=== PATIENT | female | born 1970 | race American Indian/Alaskan Native ===

== ENCOUNTER 2017-07-27 13:42 | Emergency (ER) | payer MEDICAID ==
[2017-07-27 13:43] VITALS: BMI 34.9
[2017-07-27 14:05] VITALS: TEMP 98.9
[2017-07-27] MEDS ORDERED: Albuterol-Ipratrop 3 mg / 0.5 (3 ml) UD IH STA (14:20)
--- NOTE | 2017-07-27 14:23 | ED PDOC ---
Arrival/HPI - General Chief Complaint: Shortness Of Breath Time Seen by Provider: 07/27/17 14:15 Historian: Patient - History of Present Illness Narrative History of Present Illness (Text): 07/27/17 14:20 A 47 year old female, whose past medical history includes asthma, presents to the emergency department complaining of shortness of breath and productive cough over the past 2 days. Patient reports her symptoms feel similar to previous asthma exacerbation. Patient used nebulizer treatments at home, with mild relief. Patient denies any fever, chills, nausea, vomiting, abdominal pain , chest pain or any other complaints. PMD: Dr. Page Time/Duration: Other (2 days) Symptom Course: Improving Quality: Other Context: Home Past Medical History - Provider Review Nursing Documentation Reviewed: Yes - Infectious Disease Hx of Infectious Diseases: None - Tetanus Immunization Tetanus Immunization: Unknown - Reproductive Menopause: No - Cardiac Hx Cardiac Disorders: Yes Hx Hypertension: Yes - Pulmonary Hx Respiratory Disorders: No - Neurological Hx Neurological Disorder: No - HEENT Hx HEENT Disorder: No - Renal Hx Renal Disorder: No - Endocrine/Metabolic Hx Endocrine Disorders: No - Hematological/Oncological Hx Blood Disorders: No - Integumentary Hx Dermatological Disorder: No - Musculoskeletal/Rheumatological Hx Musculoskeletal Disorders: No - Gastrointestinal Hx Gastrointestinal Disorders: No - Genitourinary/Gynecological Hx Genitourinary Disorders: No - Psychiatric Hx Psychophysiologic Disorder: No Hx Substance Use: No - Past Surgical History Past Surgical History: No Previous - Anesthesia Hx Anesthesia: No Hx Anesthesia Reactions: No Hx Malignant Hyperthermia: No - Suicidal Assessment Feels Threatened In Home Enviroment: No Family/Social History - Physician Review Nursing Documentation Reviewed: Yes Family/Social History: No Known Family HX Smoking Status: Never Smoked Hx Alcohol Use: No Hx Substance Use: No Hx Substance Use Treatment: No Allergies/Home Meds Allergies/Adverse Reactions: Allergies Penicillins Allergy (Verified 07/27/17 14:04) ANAPHYLAXIS Home Medications: Home Meds Medication Instructions Recorded Confirmed Valsartan [Diovan] 80 mg PO DAILY 07/27/17 07/27/17 [email or web address] CD [Cardizem CD] 240 mg PO DAILY 07/27/17 07/27/17 Review of Systems - Physician Review All systems were reviewed & negative as marked: Yes - Review of Systems Constitutional: absent: Fevers, Night Sweats Respiratory: SOB, Cough, Sputum Cardiovascular: absent: Chest Pain Gastrointestinal: absent: Abdominal Pain, Nausea, Vomiting Physical Exam Vital Signs Reviewed: Yes Vital Signs Temp Pulse Resp BP Pulse Ox 07/27/17 15:05 66 20 148/62 97 07/27/17 14:20 16 98 07/27/17 14:01 98.9 F 76 16 167/97 H 99 Temperature: Afebrile Blood Pressure: Hypertensive Pulse: Regular Respiratory Rate: Normal Appearance: Positive for: Well-Appearing, Non-Toxic, Comfortable Pain Distress: None Mental Status: Positive for: Alert and Oriented X 3 - Systems Exam Head: Present: Atraumatic, Normocephalic Pupils: Present: PERRL Extroacular Muscles: Present: EOMI Conjunctiva: Present: Normal Mouth: Present: Moist Mucous Membranes Neck: Present: Normal Range of Motion Respiratory/Chest: Present: Clear to Auscultation, Good Air Exchange, Other ( Actively coughing throughout evaluation). No: Respiratory Distress, Accessory Muscle Use, Wheezes Cardiovascular: Present: Regular Rate and Rhythm, Normal S1, S2. No: Murmurs Abdomen: Present: Normal Bowel Sounds. No: Tenderness, Distention, Peritoneal Signs Back: Present: Normal Inspection Upper Extremity: Present: Normal Inspection. No: Cyanosis, Edema Lower Extremity: Present: Normal Inspection. No: Edema Neurological: Present: GCS=15, CN II-XII Intact, Speech Normal Skin: Present: Warm, Dry, Normal Color. No: Rashes Psychiatric: Present: Alert, Oriented x 3, Normal Insight, Normal Concentration Medical Decision Making ED Course and Treatment: 07/27/17 14:20 Impression: A 47 year old female with shortness of breath and cough. Differential Diagnosis included but are not limited to: Asthma exacerbation Plan: -- Chest xray -- Duoneb and prednisone -- Reassess and disposition Progress Notes: 07/27/17 15:05 Patient feels much better. CXR was negative for PNA. She will be given Albuterol and Prednisone. She was advised to return to the ED if symptoms worsen or any other concern. - RAD Interpretation Radiology Orders: 07/27/17 14:20 CXR [CHEST TWO VIEWS (PA/LAT)] [RAD] Stat - Medication Orders Current Medication Orders: Discontinued Medications Albuterol/Ipratropium (Duoneb 3 Mg/0.5 Mg (3 Ml) Ud) 3 ml IH STAT STA Stop: 07/27/17 14:21 Last Admin: 07/27/17 14:52 Dose: 3 ml Prednisone (Prednisone Tab) 60 mg PO STAT STA Stop: 07/27/17 14:20 Last Admin: 07/27/17 14:51 Dose: 60 mg - Scribe Statement The provider has reviewed the documentation as recorded by the Ezequielibangie Lopez Provider Scribe Attestation: All medical record entries made by the Scribe were at my direction and personally dictated by me. I have reviewed the chart and agree that the record accurately reflects my personal performance of the history, physical exam, medical decision making, and the department course for this patient. I have also personally directed, reviewed, and agree with the discharge instructions and disposition. Disposition/Present on Arrival - Present on Arrival Any Indicators Present on Arrival: No History of DVT/PE: No History of Uncontrolled Diabetes: No Urinary Catheter: No History of Decub. Ulcer: No History Surgical Site Infection Following: None - Disposition Have Diagnosis and Disposition been Completed?: Yes Diagnosis: Asthma Disposition: HOME/ ROUTINE Disposition Time: 15:05 Patient Plan: Discharge Condition: IMPROVED Discharge Instructions (ExitCare): Asthma (ED) Additional Instructions: Ms Rothman, thank you for letting us take care of you today. Your provider was Dr. Kinsey. You were treated for Asthma Exacerbation. The emergency medical care you received today was directed at your acute symptoms. If you were prescribed any medication, please fill it and take as directed. It may take several days for your symptoms to resolve. Return to the Emergency Department if your symptoms worsen, do not improve, or if you have any other problems. Please contact your doctor or call one of the physicians/clinics you have been referred to that are listed on the Patient Visit Information form that is included in your discharge packet. Bring any paperwork you were given at discharge with you along with any medications you are taking to your follow up visit. Our treatment cannot replace ongoing medical care by a primary care provider (PCP) outside of the emergency department. Thank you for allowing the [facility] team to be part of your care today. If you had an X-Ray or CT scan: A Radiologist will review the ED reading if any change in treatment is needed we will contact you. If you had a blood, urine, or wound culture: It will take several days for the results, if any change in treatment is needed we will contact you. If you had an STI test: It will take 48 hours for the results. Please call after 1 week if you have not heard back. Prescriptions: Albuterol HFA [Ventolin HFA 90 mcg/actuation (8 g)] 2 puff IH Q4 #1 puff predniSONE [predniSONE Tab] 40 mg PO DAILY #8 tab Referrals: [facility] Luis Peter, [Non-Staff] - Follow up with primary Forms: [facility] (Iranian), WORK NOTE
--- NOTE | 2017-07-27 14:59 | RAD ---
HISTORY: cough r/o pna COMPARISON: No prior. TECHNIQUE: Chest PA and lateral FINDINGS: LUNGS: No active pulmonary disease. PLEURA: No significant pleural effusion identified. No pneumothorax apparent. CARDIOVASCULAR: Normal. OSSEOUS STRUCTURES: No significant abnormalities. VISUALIZED UPPER ABDOMEN: Normal. OTHER FINDINGS: None. IMPRESSION: No active disease.
[2017-07-27 15:13] VITALS: BP 148/62; PULSE 66; RESP 20; O2SAT 97
== END 2017-07-27 15:05 | disposition home or self-care (01) ==
LOC: ED 13:42
DX: J45.909 Unspecified asthma, uncomplicated (principal); I10 Essential (primary) hypertension

== ENCOUNTER 2017-09-27 13:17 | Emergency (ER) | payer MEDICAID ==
[2017-09-27 13:39] VITALS: BP 167/93; PULSE 89; RESP 18; TEMP 98.3; O2SAT 100
[2017-09-27 13:44] VITALS: BMI 39.9
--- NOTE | 2017-09-27 14:08 | ED PDOC ---
Arrival/HPI - General Chief Complaint: Abdominal Pain Time Seen by Provider: 09/27/17 13:34 Historian: Patient - History of Present Illness Narrative History of Present Illness (Text): 09/27/17 14:07 A 47 year old female, whose past medical history includes asthma, presents to the emergency department with a complaint of 3 week duration intermittent, left sided abdominal pain. The patient states that her symptoms have progressively worsened within the last 2 days making her feel nauseous and pass loose stools. The patient denies fevers, chills, headache, dizziness, chest pain, shortness of breath, dyspnea on exertion, cough, vomiting, neck pain, urinary symptoms, recent travel, sick contact, or any other complaint. Time/Duration: Other (3 weeks) Symptom Onset: Gradual Symptom Course: Intermittent, Worsening Activities at Onset: Rest Context: Home Past Medical History - Provider Review Nursing Documentation Reviewed: Yes - Infectious Disease Hx of Infectious Diseases: None - Tetanus Immunization Tetanus Immunization: Unknown - Cardiac Hx Cardiac Disorders: Yes Hx Hypertension: Yes - Pulmonary Hx Respiratory Disorders: Yes Hx Asthma: Yes - Neurological Hx Neurological Disorder: No - HEENT Hx HEENT Disorder: No - Renal Hx Renal Disorder: No - Endocrine/Metabolic Hx Endocrine Disorders: No - Hematological/Oncological Hx Blood Disorders: No - Integumentary Hx Dermatological Disorder: No - Musculoskeletal/Rheumatological Hx Musculoskeletal Disorders: No - Gastrointestinal Hx Gastrointestinal Disorders: No - Genitourinary/Gynecological Hx Genitourinary Disorders: No - Psychiatric Hx Psychophysiologic Disorder: No Hx Substance Use: No - Past Surgical History Past Surgical History: No Previous - Anesthesia Hx Anesthesia: Yes Hx Anesthesia Reactions: No Hx Malignant Hyperthermia: No - Suicidal Assessment Feels Threatened In Home Enviroment: No Family/Social History - Physician Review Nursing Documentation Reviewed: Yes Family/Social History: No Known Family HX Smoking Status: Never Smoked Hx Alcohol Use: No Hx Substance Use: No Hx Substance Use Treatment: No Allergies/Home Meds Allergies/Adverse Reactions: Allergies Penicillins Allergy (Verified 07/27/17 14:04) ANAPHYLAXIS Home Medications: Home Meds Medication Instructions Recorded Confirmed Valsartan [Diovan] 80 mg PO DAILY 07/27/17 09/27/17 [email or web address] CD [Cardizem CD] 240 mg PO DAILY 07/27/17 09/27/17 Review of Systems - Physician Review All systems were reviewed & negative as marked: Yes - Review of Systems Constitutional: absent: Fevers, Night Sweats Respiratory: absent: SOB, Cough Cardiovascular: absent: Chest Pain, MADDEN Gastrointestinal: Stool Changes (Loose stools), Nausea. absent: Abdominal Pain , Vomiting Genitourinary Female: absent: Urine Output Changes Musculoskeletal: absent: Neck Pain Neurological: absent: Headache, Dizziness Physical Exam Vital Signs Reviewed: Yes Vital Signs Temp Pulse Resp BP Pulse Ox 09/27/17 13:38 98.3 F 89 18 167/93 H 100 Temperature: Afebrile Blood Pressure: Hypertensive Pulse: Regular Respiratory Rate: Normal Appearance: Positive for: Well-Appearing, Non-Toxic, Comfortable Pain Distress: None Mental Status: Positive for: Alert and Oriented X 3 - Systems Exam Head: Present: Atraumatic, Normocephalic Pupils: Present: PERRL Extroacular Muscles: Present: EOMI Conjunctiva: Present: Normal Mouth: Present: Moist Mucous Membranes Neck: Present: Normal Range of Motion Respiratory/Chest: Present: Clear to Auscultation, Good Air Exchange. No: Respiratory Distress, Accessory Muscle Use Cardiovascular: Present: Regular Rate and Rhythm, Normal S1, S2. No: Murmurs Abdomen: Present: Tenderness (Tenderness on palpation of the Left Upper Quadrant ) Back: Present: Normal Inspection Upper Extremity: Present: Normal Inspection. No: Cyanosis, Edema Lower Extremity: Present: Normal Inspection. No: Edema Neurological: Present: GCS=15, CN II-XII Intact, Speech Normal Skin: Present: Warm, Dry, Normal Color. No: Rashes Psychiatric: Present: Alert, Oriented x 3, Normal Insight, Normal Concentration Medical Decision Making ED Course and Treatment: 09/27/17 14:15 Impression: A 47 year old female presents to the emergency department with left sided abdominal pain for 3 weeks, worsening over the past 2 days. Plan: -- Labs -- Abdomen/Pelvis CT -- Urinalysis -- Reassess and disposition Prior Visits: Notes and results from previous visits were reviewed. Patient was last seen in the emergency department on 07/27/17. The patient was seen in the emergency department for shortness of breath and productive cough. The patient was discharged home on Albuterol and predniSONE. Progress Notes: 09/27/17 16:10 Re-evaluation. Patient feels better. Discussed results and plan with patient who expresses understanding. All questions answered and there is agreement with the plan to discharge home with instructions. Patient stable for discharge. Return if symptoms persist or worsen. Patient was recommended to f/u pmd in 3-5 days for revaluation, and to review urine culture. To return to emergency if symptoms worsen. Patient noted acid reflux within last 3 weeks, and urinary frequency. I recommended patient to review urine culture report with her pmd in 3 days. Re-evaluation Time: 16:10 Reassessment Condition: Re-examined, Improved - Lab Interpretations Lab Results: 09/27/17 14:05 09/27/17 14:05 Lab Results 09/27/17 14:10: Urine Color Yellow, Urine Appearance Clear, Urine pH 6.5, Ur Specific [place] <= 1.005, Urine Protein Negative, Urine Glucose (UA) Negative, Urine Ketones Negative, Urine Blood Trace-intact H, Urine Nitrate Negative, Urine Bilirubin Negative, Urine Urobilinogen 0.2, Ur Leukocyte Esterase Negative , Urine RBC 1 - 3, Urine WBC Negative, Ur Epithelial Cells 1 - 3, Urine Bacteria Few, Urine HCG, Qual Negative 09/27/17 14:05: Sodium 143, Potassium 3.5 L, Chloride 104, Carbon Dioxide 26, Anion Gap 16, BUN 9, Creatinine 0.8, Est GFR ( Amer) > 60, Est GFR (Non- Af Amer) > 60, Random Glucose 104, Calcium 9.5, Total Bilirubin 0.3, AST 26, ALT 35, Alkaline Phosphatase 101, Total Protein 8.4 H, Albumin 4.6, Globulin 3.7 , Albumin/Globulin Ratio 1.2 09/27/17 14:05: WBC 7.3 D, RBC 4.55, Hgb 13.3, Hct 39.5, MCV 86.8, MCH 29.2, MCHC 33.7, RDW 13.9, Plt Count 332, MPV 9.4, Gran % 56.8, Lymph % (Auto) 34.0, [place] % (Auto) 6.4 H, Eos % (Auto) 2.0, Baso % (Auto) 0.8, Gran # 4.16, Lymph # 2.5, [place] # 0.5, Eos # 0.2, Baso # 0.06 I have reviewed the lab results: Yes Interpretation: No clinic. lab abnormalty - RAD Interpretation Narrative RAD Interpretations (Text): 09/27/17 15:52 PROCEDURE: CT Abdomen and Pelvis without intravenous contrast HISTORY: Left flank pain, left upper quadrant pain 3 weeks duration. By history, negative test (concurrent with this examination). COMPARISON: None. TECHNIQUE: Unenhanced study. Neither oral nor intravenous contrast administered. Radiation dose: Total exam DLP = 1199.15 mGy-cm. This CT exam was performed using one or more of the following dose reduction techniques: Automated exposure control, adjustment of the mA and/or kV according to patient size, and/or use of iterative reconstruction technique. FINDINGS: LOWER THORAX: Unremarkable. LIVER: Unremarkable. No gross lesion or ductal dilatation. GALLBLADDER AND BILE DUCTS: Unremarkable. PANCREAS: Unremarkable. No gross lesion or ductal dilatation. SPLEEN: Unremarkable. ADRENALS: Unremarkable. No mass. KIDNEYS AND URETERS: Unremarkable. No hydronephrosis. No solid mass. VASCULATURE: Unremarkable. No aortic aneurysm. BOWEL: Unremarkable. No obstruction. No gross mural thickening. APPENDIX: Unremarkable. Normal appendix. PERITONEUM: Unremarkable. No free fluid. No free air. LYMPH NODES: Unremarkable. No enlarged lymph nodes. BLADDER: Unremarkable. REPRODUCTIVE: Unremarkable. BONES: No acute fracture. OTHER FINDINGS: None. IMPRESSION: No significant or acute findings to account for/ related to the clinical presentation. Radiology Orders: 09/27/17 14:20 ABD & PELVIS W/O PO OR IV CONT [CT] Stat - Medication Orders Current Medication Orders: Discontinued Medications Famotidine (Pepcid 20mg/50ml Premix) 20 mg in 50 mls @ 100 mls/hr IVPB STAT STA Stop: 09/27/17 14:49 Last Admin: 09/27/17 14:24 Dose: 100 mls/hr eMAR Start Stop Document 09/27/17 14:24 SE (Rec: 09/27/17 14:24 SE [id number]) Intravenous Solution Start Date 09/27/17 Start Time 14:24 - Scribe Statement The provider has reviewed the documentation as recorded by the Isiah Cunningham Provider Scribe Attestation: All medical record entries made by the Scribe were at my direction and personally dictated by me. I have reviewed the chart and agree that the record accurately reflects my personal performance of the history, physical exam, medical decision making, and the department course for this patient. I have also personally directed, reviewed, and agree with the discharge instructions and disposition. Disposition/Present on Arrival - Present on Arrival Any Indicators Present on Arrival: No History of DVT/PE: No History of Uncontrolled Diabetes: No Urinary Catheter: No History of Decub. Ulcer: No History Surgical Site Infection Following: None - Disposition Have Diagnosis and Disposition been Completed?: Yes Diagnosis: Nonspecific abdominal pain Disposition: HOME/ ROUTINE Disposition Time: 16:11 Patient Plan: Discharge Patient Problems: Current Active Problems Problem Status Onset Nonspecific abdominal pain Acute Condition: IMPROVED Discharge Instructions (ExitCare): Abdominal Pain (ED) Additional Instructions: Call private doctor for follow up visit in 3-5 days. Take medication as instructed. Return to emergency if symptoms worsen. Prescriptions: Nitrofurantoin Macrocrystals [Macrobid] 100 mg PO BID #10 cap Omeprazole 40 mg PO DAILY #10 capsule.dr Referrals: Dylon Page Jr., MD [Primary Care Provider] - Follow up with primary Forms: [facility] ([place]aguan), WORK NOTE
[2017-09-27] MEDS ORDERED: Famotidine 20mg/50ml 20 MG/50 ML BAG IVPB STA (14:20)
[2017-09-27 14:30] LABS: BASO # 0.06 K/mm3 (0.0-2.0); BASO % 0.8 % (0.0-3.0); EOS # 0.2 (0.0-0.7); GRAN # 4.16 (1.4-6.5); GRAN % 56.8 % (50.0-68.0); HEMATOCRIT 39.5 % (36.0-48.0); LYMPH # 2.5 (1.2-3.4); MEAN CELL VOLUME 86.8 fl (80.0-105.0); MEAN CORPUSCULAR HEMOGLOBIN 29.2 pg (25.0-35.0); MEAN CORPUSCULAR HGB CONC 33.7 g/dl (31.0-37.0); MEAN PLATELET VOLUME 9.4 fl (7.0-11.0); MONO # 0.5 (0.1-0.6); MONO % 6.4 % (1.0-6.0); RED CELL DISTRIBUTION WIDTH 13.9 % (11.5-14.5); WHITE BLOOD COUNT 7.3 10^3/ul (4.5-11.0)
[2017-09-27 14:41] LABS: ALB/GLOB RATIO 1.2 (1.1-1.8); ALKALINE PHOSPHATASE 101 U/L (38-126); ALT/SGPT 35 U/L (7-56); AST/SGOT 26 U/L (14-36); BILIRUBIN,TOTAL 0.3 mg/dL (0.2-1.3); BLOOD UREA NITROGEN 9 mg/dL (7-21); CALCIUM 9.5 mg/dL (8.4-10.5); CARBON DIOXIDE 26 mmol/L (21-33); CHLORIDE 104 mmol/L (98-107); GFR AFRICAN-AMERICAN > 60; GLUCOSE,RANDOM 104 mg/dL (70-110); POTASSIUM 3.5 mmol/L (3.6-5.0); SODIUM 143 mmol/L (132-148); TOTAL PROTEIN 8.4 g/dL (5.8-8.3)
[2017-09-27 14:53] LABS: PH,URINE 6.5 (4.7-8.0); URINE BILIRUBIN NEGATIVE (NEGATIVE); URINE BLOOD TRACE-INTACT (NEGATIVE); URINE GLUCOSE (UA) NEGATIVE (NEGATIVE); URINE KETONE NEGATIVE (NEGATIVE); URINE LEUKOCYTE ESTERASE NEGATIVE Leu/uL (NEGATIVE); URINE PROTEIN NEGATIVE mg/dL (<30 mg/dL); URINE UROBILINOGEN 0.2 E.U./dL (<1 E.U./dL)
[2017-09-27 14:54] LABS: URINE APPEARANCE CLEAR (CLEAR); URINE COLOR YELLOW (YELLOW)
[2017-09-27 14:58] LABS: URINE BACTERIA FEW (NEG); URINE WBC NEGATIVE /hpf (0-6)
--- NOTE | 2017-09-27 15:48 | CT ---
PROCEDURE: CT Abdomen and Pelvis without intravenous contrast HISTORY: Left flank pain, left upper quadrant pain 3 weeks duration. By history, negative test (concurrent with this examination). COMPARISON: None. TECHNIQUE: Unenhanced study. Neither oral nor intravenous contrast administered. Radiation dose: Total exam DLP = 1199.15 mGy-cm. This CT exam was performed using one or more of the following dose reduction techniques: Automated exposure control, adjustment of the mA and/or kV according to patient size, and/or use of iterative reconstruction technique. FINDINGS: LOWER THORAX: Unremarkable. LIVER: Unremarkable. No gross lesion or ductal dilatation. GALLBLADDER AND BILE DUCTS: Unremarkable. PANCREAS: Unremarkable. No gross lesion or ductal dilatation. SPLEEN: Unremarkable. ADRENALS: Unremarkable. No mass. KIDNEYS AND URETERS: Unremarkable. No hydronephrosis. No solid mass. VASCULATURE: Unremarkable. No aortic aneurysm. BOWEL: Unremarkable. No obstruction. No gross mural thickening. APPENDIX: Unremarkable. Normal appendix. PERITONEUM: Unremarkable. No free fluid. No free air. LYMPH NODES: Unremarkable. No enlarged lymph nodes. BLADDER: Unremarkable. REPRODUCTIVE: Unremarkable. BONES: No acute fracture. OTHER FINDINGS: None. IMPRESSION: No significant or acute findings to account for/ related to the clinical presentation.
== END 2017-09-27 16:26 | disposition home or self-care (01) ==
LOC: ED 13:17
DX: R10.9 Unspecified abdominal pain (principal); I10 Essential (primary) hypertension; Z88.0 Allergy status to penicillin